=== PATIENT | male | born 1980 | race Caucasian/White ===

== ENCOUNTER 2021-10-24 19:32 | Emergency (ER) | payer SELFPAY ==
[2021-10-24] MEDS ORDERED: Diphtheria,Pertussis(Acell),Tetanus Vaccine 0.5 ML Syringe IM ONE (21:02)
[2021-10-24] MEDS ORDERED: Acetaminophen 500 MG Tab PO ONE (21:02)
[2021-10-24 21:10] VITALS: BP 151/102; PULSE 87
== END 2021-10-24 21:25 ==
LOC: MERGE 19:32 → FB.ED 19:32
DX: S06.0X9A Concussion with loss of consciousness of unspecified duration, initial encounter (principal); S06.5X2A Traumatic subdural hemorrhage with loss of consciousness of 31 minutes to 59 minutes, initial encounter; S02.0XXA Fracture of vault of skull, initial encounter for closed fracture; S01.01XA Laceration without foreign body of scalp, initial encounter; H57.89 Other specified disorders of eye and adnexa; Z88.0 Allergy status to penicillin; Z23 Encounter for immunization; Y04.2XXA Assault by strike against or bumped into by another person, initial encounter
CPT/HCPCS: 12002; 36415; 70450; 80053; 85025; 85610; 90471; 90715; 99285; A9270

== ENCOUNTER 2023-06-20 01:36 | Observation (INO) | payer MEDICAID ==
[2023-06-20] MEDS ORDERED: Ondansetron 4 MG/2 ML SDV IVPUSH ONE (01:58)
[2023-06-20] MEDS ORDERED: Morphine 4 MG/ML VIAL IVPUSH ONE ×2 (01:58→03:52)
[2023-06-20] MEDS ORDERED: Naloxone 0.4 MG/ML SDV IVPUSH PRN (01:58)
[2023-06-20] MEDS: Sodium Chloride 0.9% 10 ML Syringe FLUSH PRN ×2 (02:23→19:34)
[2023-06-20] MEDS ORDERED: Sodium Chloride 0.9% 1,000 ML IV ONE (02:29)
[2023-06-20 03:00] LABS: BASOPHILS PERCENT AUTO 0.4 % (0.3-3.8); EOSINOPHILS ABSOLUTE AUTO 0.1 x10-3/uL (0.0-0.6); EOSINOPHILS PERCENT AUTO 1.1 % (0.1-6.8); HEMATOCRIT 47.3 % (38.3-50.1); HEMOGLOBIN 15.9 g/dL (12.9-17.7); LYMPHOCYTES ABSOLUTE AUTO 1.9 x10-3/uL (0.5-4.5); LYMPHOCYTES PERCENT AUTO 22.2 % (15.8-45.3); MEAN CORPUSCULAR HEMOGLOBIN 30.1 pg (27.0-33.3); MEAN CORPUSCULAR HGB CONC 33.5 g/dL (28.7-35.3); MEAN CORPUSCULAR VOLUME 89.7 fL (80.8-98.7); MEAN PLATELET VOLUME 8.4 fL (6.7-11.0); MONOCYTES ABSOLUTE AUTO 0.5 x10-3/uL (0.0-1.2); MONOCYTES PERCENT AUTO 6.5 % (5.5-15.2); NEUTROPHILS ABSOLUTE AUTO 5.9 x10-3/uL (1.7-6.9); NEUTROPHILS PERCENT AUTO 69.8 % (40.3-71.8); PLATELET COUNT,PLT 316 x10(3)uL (117-477); RED BLOOD CELL COUNT 5.27 x10(6)uL (3.90-5.90); RED CELL DISTRIBUTION WIDTH 14.1 % (12.4-15.0); WHITE BLOOD CELL COUNT,WBC 8.4 x10-3/uL (3.2-10.1)
[2023-06-20 03:02] LABS: BLOOD UREA NITROGEN,BUN 9 mg/dL (7-18); BUN/CREATININE RATIO 11.3 (9-20); CALCIUM 8.7 mg/dL (8.6-10.2); CARBON DIOXIDE,CO2 30 mmol/L (21-32); CHLORIDE,CL 105 mmol/L (100-110); CREATININE 0.8 mg/dL (0.70-1.30); ESTIMATED GFR 112 mL/min (>60); GLUCOSE RANDOM 98 mg/dL (80-116); SODIUM,NA 142 mmol/L (135-145)
[2023-06-20 03:07] LABS: A/G RATIO 0.9; ALANINE AMINOTRANSFERASE,ALT 19 U/L (12-36); ALKALINE PHOSPHATASE 96 IU/L (56-112); ASPARTATE AMNIOTRANSFERASE,AST 12 IU/L (5-25); BILIRUBIN TOTAL 0.2 mg/dL (0.1-1.3); MAGNESIUM 1.9 mg/dL (1.8-2.5); PROTEIN TOTAL,TP 6.5 g/dL (6.0-8.0)
[2023-06-20 03:17] LABS: C-REACTIVE PROTEIN 0.98 mg/dL (<0.33)
[2023-06-20] MEDS: Lidocaine 2% HCl 6 ML Jel ONE ×2 (03:36→03:39)
[2023-06-20] MEDS ORDERED: Sodium Chloride 0.9% 1,000 ML IV SCH (04:15)
[2023-06-20 04:16] LABS: BILIRUBIN,URINE NEGATIVE (NEGATIVE); GLUCOSE,URINE NORMAL (NORMAL); KETONES,URINE NEGATIVE (NEGATIVE); LEUKOCYTE ESTERASE,URINE NEGATIVE (NEGATIVE); NITRITE,URINE NEGATIVE (NEGATIVE); OCCULT BLOOD,URINE NEGATIVE (NEGATIVE); PROTEIN,URINE NEGATIVE (NEGATIVE); UROBILINOGEN,URINE NORMAL (NEGATIVE)
[2023-06-20 04:23] LABS: APPEARANCE,URINE CLEAR (CLEAR); BACTERIA,URINE RARE (NS); COLOR,URINE YELLOW (YELLOW); RBC,URINE 0-5 (0-5); SQUAMOUS EPITHELIAL CELLS,UR OCCASIONAL (NS,R,O); WBC,URINE 0-5 (0-5)
[2023-06-20] MEDS ORDERED: Ondansetron 4 MG/2 ML SDV IV PRN (05:30)
[2023-06-20] MEDS: Pantoprazole 40 MG Vial IVPUSH SCH ×2 (06:12→17:01)
[2023-06-20] MEDS: Morphine 2 MG/ML SYRINGE IVPUSH PRN (07:43)
[2023-06-20] MEDS: HYDROmorphone 2 MG/ML SDV IVPUSH PRN ×5 (10:12→22:51)
[2023-06-20] MEDS: Sodium Chloride 0.9% 1,000 ML IV SCH ×3 (10:17→23:47)
[2023-06-21] MEDS: HYDROmorphone 2 MG/ML SDV IVPUSH PRN (03:10)
[2023-06-21] MEDS: Pantoprazole 40 MG Vial IVPUSH SCH (05:15)
[2023-06-21] MEDS: Morphine 2 MG/ML SYRINGE IVPUSH PRN (05:35)
[2023-06-21 06:43] LABS: BASOPHILS PERCENT AUTO 0.6 % (0.3-3.8); EOSINOPHILS ABSOLUTE AUTO 0.1 x10-3/uL (0.0-0.6); EOSINOPHILS PERCENT AUTO 1.8 % (0.1-6.8); HEMATOCRIT 44.5 % (38.3-50.1); HEMOGLOBIN 15.1 g/dL (12.9-17.7); LYMPHOCYTES ABSOLUTE AUTO 1.4 x10-3/uL (0.5-4.5); LYMPHOCYTES PERCENT AUTO 23.9 % (15.8-45.3); MEAN CORPUSCULAR HEMOGLOBIN 30.4 pg (27.0-33.3); MEAN CORPUSCULAR HGB CONC 33.9 g/dL (28.7-35.3); MEAN CORPUSCULAR VOLUME 89.7 fL (80.8-98.7); MEAN PLATELET VOLUME 7.9 fL (6.7-11.0); MONOCYTES ABSOLUTE AUTO 0.3 x10-3/uL (0.0-1.2); NEUTROPHILS ABSOLUTE AUTO 3.9 x10-3/uL (1.7-6.9); NEUTROPHILS PERCENT AUTO 67.7 % (40.3-71.8); PLATELET COUNT,PLT 301 x10(3)uL (117-477); RED BLOOD CELL COUNT 4.96 x10(6)uL (3.90-5.90); RED CELL DISTRIBUTION WIDTH 14.1 % (12.4-15.0); WHITE BLOOD CELL COUNT,WBC 5.8 x10-3/uL (3.2-10.1)
[2023-06-21] MEDS: Sodium Chloride 0.9% 1,000 ML IV SCH (06:49)
[2023-06-21 06:51] LABS: BLOOD UREA NITROGEN,BUN 8 mg/dL (7-18); BUN/CREATININE RATIO 11.4 (9-20); CALCIUM 8.6 mg/dL (8.6-10.2); CARBON DIOXIDE,CO2 28 mmol/L (21-32); CHLORIDE,CL 104 mmol/L (100-110); CREATININE 0.7 mg/dL (0.70-1.30); EST CRCL DRUG DOSING (CG) 133.22 mL/min; ESTIMATED GFR 117 mL/min (>60); GLUCOSE RANDOM 77 mg/dL (80-116); POTASSIUM,K 3.9 mmol/L (3.5-5.3); SODIUM,NA 139 mmol/L (135-145)
[2023-06-21 09:47] VITALS: BP 134/79; PULSE 72
== END 2023-06-21 09:18 | disposition home or self-care (01) ==
LOC: FB.ED 01:36 → FB.MS 06:13
PROVIDERS: ADMIT Emergency Medicine; ATTEND Family Medicine
DX: K85.91 Acute pancreatitis with uninfected necrosis, unspecified (principal); I10 Essential (primary) hypertension; F41.9 Anxiety disorder, unspecified; F32.A Depression, unspecified; F43.10 Post-traumatic stress disorder, unspecified; F17.210 Nicotine dependence, cigarettes, uncomplicated; Z88.0 Allergy status to penicillin
CPT/HCPCS: 36415; 74176; 80048; 80053; 80061; 81001; 83605; 83690; 83735; 85025; 86140; 96361; 96374; 96375; 96376; 99222; 99238; 99285-25; A9270-GY; C9113; G0378; J1170; J2270; J2405; J3490; J7030